=== PATIENT | male | born 1955 | race Hispanic/Latino ===

== ENCOUNTER → 2018-06-13 | Day surgery (SDC) | payer MEDICARE ==
[~2018-06-13] MED LIST: AMLODIPINE BESYL5 MG PO; AVODART0.5 MG PO; BACTRIM DS TAB1 EACH PO; FENTANYL CITRATE/PF 100MCG/2 ML INJ ONE; GLIMEPIRIDE2 MG PO; LIDOCAINE HCL 2% LOCAL INJ 5 ML SDV VIAL INJ ONE; LOSARTAN POTAS100 MG PO; LOTEMAX5 ML; LOVASTATIN40 MG PO; LYRICA25 MG PO; MIDAZOLAM HCL 2 MG/2 ML VIAL ONE; PAROXETINE HCL20 MG PO; PROPOFOL IV EMULSION 10 MG/ML 50 ML VIAL ONE; TACROLIMUS1 MG PO; VIT D3 PO
--- OUTSIDE RECORDS SUMMARY | 2018-06-13 07:30 | XMS REPORT | Clinical Summary ---
Author Author [facility] Address Unknown Phone Unavailable Care Team Providers Care Filter Tank Tender Helper Head Name Role Phone Gina Cota DO PCP Allergies No Known Allergies Medications End Date Status Medication Sig Dispensed Refills Start Date Active insulin lispro Inject under 0 protamin-lispro (HumaLOG the skin. 50-50) 100 unit/mL (50-50) suspension Active morPHINE (MS CONTIN) 30 Take 30 mg by 0 MG 12 hr tablet mouth 2 (two) times a day. Active pregabalin (LYRICA) 150 Take 150 mg 0 MG capsule by mouth 3 (three) times a day. Active LORAZepam (ATIVAN) 1 MG Take 1 mg by 0 tablet mouth 2 (two) times a day. Active cyclobenzaprine Take 10 mg by 0 (FLEXERIL) 10 mg tablet mouth 3 (three) times a day. Active bacitracin ophthalmic VIKTOR INTO LEFT 1 ointment EYE QHS UTD 7 Active BESIVANCE 0.6 % INT 1 GTT OS 6 drops,suspension Q 1 H QD AND 7 QPM Active LOTEMAX 0.5 % drops,gel INT 1 GTT IN 3 OS QID 7 Active gabapentin (NEURONTIN) Take by 0 300 mg capsule mouth. 5 Active glimepiride (AMARYL) 4 MG Take by 0 tablet mouth. 5 Active insulin NPH (HumuLIN-N) Inject 55 0 100 unit/mL injection units under 5 the skin every morning and 55 units every evening for diabetes Active lancets 28 gauge misc Use before 0 meals and at 4 bedtime Active metFORMIN (GLUCOPHAGE) Take by 0 500 mg tablet mouth. 5 Active insulin syringe-needle Inject under 0 U-100 (ULTRA COMFORT the skin. 5 INSULIN SYRINGE) 1/2 mL 30 gauge x 5/16 syringe Active blood-glucose meter Use to test 0 (PRECISION XTRA MONITOR) blood sugar. 8 misc This prescription is a verbal order by collaborative practice agreement at [facility] ([facility]). 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 complete remission 09/12/2007 Encounters Care Team Description Date Type Specialty Marlys Munguia MD 07/26/2017 Anesthesia Plastic Surgery Event Christopher Kearns MD PSEUDOPHAKIC PENETRATING KERATOPLASTY 07/26/2017 Surgery Plastic Surgery Christopher Kearns MD Descemetocele, left 07/26/2017 Hospital Plastic Surgery Encounter Suraj Alvarado MD 07/12/2017 Lab Lab Christopher Kearns MD 07/12/2017 Lab Lab after 06/12/2017 Immunizations Name Dates Previously Given Next Due INFLUENZA QUAD 06/11/2013 Pneumococcal 11/05/2016, 03/22/2011 Polysaccharide Family History Medical History Relation Name Comments No Known Problems Father Diabetes Mother Hyperlipidemia Mother Hypertension Mother Relation Name Status Comments Father Mother Social History Date Tobacco Use Types Packs/Day Years Used 07/04/1962 - 10/06/2002 Former Smoker Cigarettes 1 Smokeless Tobacco: Never Used Alcohol Use Drinks/Week oz/Week Comments No Sex Assigned at Date Recorded Not on file Industry Job Start Date Occupation Not on file Not on file Not on file Travel End Travel History Travel Start No recent travel history available. Last Filed Vital Signs Time Taken Vital Sign Reading 07/26/2017 3:08 PM CD [employer] Blood Pressure 132/75 07/26/2017 3:08 PM CD [employer] Pulse 69 07/26/2017 3:08 PM CD [employer]UFA[employer]ING SUPERVISOR Temperature 36.4 C (97.5 F) 07/26/2017 3:08 PM CD [employer]UFA[employer]URING SUPER[employer] Respiratory Rate 11 07/26/2017 3:08 PM CD [employer]UFACTURING SUPERVISOR Oxygen Saturation 95% - Inhaled Oxygen - Concentration - Weight - 07/26/2017 11:16 AM CD [employer]UFACTURING SUPERVISOR Height 172.7 cm (5' 8") - Body Mass Index - Plan of Treatment Health Maintenance Due Date Last Done Comments DIABETIC FOOT EXAM 1964 URINE MICROALBUMIN 1964 COLON CANCER SCREENING 2004 SHINGRIX VACCINE (1 of 2) 2004 ZOSTER VACCINE 2014 INFLUENZA VACCINE 02/01/2018 06/11/2013 DIABETIC RETINAL EYE EXAM 04/19/2018 04/19/2017 Implants Device Identifier Shelf Expiration Date Model / Serial / Lot Implanted Type Area Manufactur er 08/04/2017 PKP / W [id number] / Tissue Corneal - Sw [id number] Ophthalmic Left: Cornea [employer], 00 - [id number] Implants [employer] Implanted: Qty: 1 on 07/26/2017 by Christopher Braden MD [facility] Procedures Comments Procedure Name Priority Date/Time Associated Diagnosis SURGICAL PATHOLOGY Routine 07/26/2017 REQUEST 3:07 PM CD MANUFACTURING SUPERVISOR POC GLUCOSE Routine 07/26/2017 3:01 PM CD MANUFACTURING SUPERVISOR POC GLUCOSE Routine 07/26/2017 1:44 PM CD MANUFACTURING SUPERVISOR KERATOPLASTY, PENETRATING 07/26/2017 Descemetocele, left 1:35 PM CD MANUFACTURING SUPERVISOR Special Needs REQ 1330 START POC GLUCOSE Routine 07/26/2017 1:11 PM CD MANUFACTURING SUPERVISOR POC PANEL 4 Routine 07/26/2017 11:26 AM CD MANUFACTURING SUPERVISOR AFB STAIN Routine 07/12/2017 11:51 AM CD MANUFACTURING SUPERVISOR FUNGUS CULTURE Routine 07/12/2017 11:51 AM CD MANUFACTURING SUPERVISOR GRAM STAIN Routine 07/12/2017 11:51 AM CD MANUFACTURING SUPERVISOR FUNGUS SMEAR Routine 07/12/2017 11:51 AM CD MANUFACTURING SUPERVISOR EYE CULTURE, ANAEROBIC Routine 07/12/2017 11:51 AM CD MANUFACTURING SUPERVISOR EYE CULTURE Routine 07/12/2017 11:51 AM CD MANUFACTURING SUPERVISOR ACRIDINE ORANGE STAIN Routine 07/12/2017 11:51 AM CD MANUFACTURING SUPERVISOR after 06/12/2017 Results * Surgical pathology request (07/26/2017 3:07 PM CD MANUFACTURING SUPERVISOR) [facility] DEPARTMENT OF PATHOLOGY AND GENOMIC MEDICINE Surgical pathology report See link below for PDF Lab [facility] DEPARTMENT OF Report PATHOLOGY AND GENOMIC MEDICINE Result status This is Final Report to [facility] DEPARTMENT OF [id number] PATHOLOGY AND GENOMIC MEDICINE Performing Organization Address [facility] Phone Number [facility] [place] [address] PATHOLOGY AND GENOMIC MEDICINE * POC glucose (07/26/2017 3:01 PM CD MANUFACTURING SUPERVISOR) Only the most recent of 3 results within the time period is included. POC glucose 201 (H) 65 - 99 mg/dL [facility] DEPARTMENT OF Comment: PATHOLOGY AND [facility] Notified RN GENOMIC MEDICINE Meter ID: [id number] Bag Press Operator: LAITH HANNON Performing Organization Address [facility] Phone Number [facility] [place] [address] PATHOLOGY AND GENOMIC MEDICINE * POC panel 4 (07/26/2017 11:26 AM CD MANUFACTURING SUPERVISOR) POC sodium 125 (L)Comment: Testing 135 - 148 mEq/L [facility] DEPARTMENT OF performed on the ISTAVimty PATHOLOGY AND instrument by GEOVANY Sibley [id number] GENOMIC MEDICINE POC potassium 3.4 (L) 3.5 - 5.0 mEq/L [facility] DEPARTMENT OF PATHOLOGY AND GENOMIC MEDICINE POC hematocrit 28 (L) 41 - 51 % [facility] DEPARTMENT OF PATHOLOGY AND GENOMIC MEDICINE POC glucose 272 (H) 65 - 99 mg/dL [facility] DEPARTMENT OF PATHOLOGY AND GENOMIC MEDICINE Performing Organization Address [facility] Phone Number [facility] [place] [address] PATHOLOGY AND GENOMIC MEDICINE * Fungus smear (07/12/2017 11:51 AM CD MANUFACTURING SUPERVISOR) Fungus smear No fungi observed. [facility] DEPARTMENT OF Comment: PATHOLOGY AND Specimen Information GENOMIC MEDICINE Specimen Source: Cornea Specimen Site: Left Eye Specimen Cornea Performing Organization Address City/[facility] Phone Number [facility] [place] [address] PATHOLOGY AND GENOMIC MEDICINE * Eye culture, anaerobic (07/12/2017 11:51 AM CD MANUFACTURING SUPERVISOR) Eye culture isolate, Thioglycollate: [facility] DEPARTMENT OF anaerobic No anaerobes isolated after 7 PATHOLOGY AND days. GENOMIC MEDICINE Comment: Specimen Information Specimen Source: Cornea Specimen Site: Left Eye Specimen Cornea Performing Organization Address [facility] Phone Number [facility] DEPARTMENT OF [address] [place] [address] PATHOLOGY AND GENOMIC MEDICINE * Acridine orange stain (07/12/2017 11:51 AM CD MANUFACTURING SUPERVISOR) Acridine orange stain Rare WBC's [facility] DEPARTMENT OF No organisms seen PATHOLOGY AND Comment: GENOMIC MEDICINE Specimen Information Specimen Source: Cornea Specimen Site: Left Eye Specimen Cornea Performing Organization Address [facility] Phone Number [facility] DEPARTMENT OF [address] [place] [address] PATHOLOGY AND GENOMIC MEDICINE * Eye culture (07/12/2017 11:51 AM CD MANUFACTURING SUPERVISOR) Eye culture isolate Blood and Chocolate agars and [facility] DEPARTMENT OF Thioglycollate broth: PATHOLOGY AND Blood and Chocolate agar: [employer] MEDICINE Blood agar: No growth after 7 days. (A) Comment: Specimen Information Specimen Source: Cornea Specimen Site: Left Eye Eye culture isolate Staphylococcus, coagulase [facility] DEPARTMENT OF negative PATHOLOGY AND Recovered in Broth only: [employer] MEDICINE susceptibility to follow Interpretations of the AVELINA values are based on serum and urine levels.Interpret results accordingly. Interpretations of the AVELINA values are based on serum and urine levels.Interpret results accordingly. (A) Eye culture isolate Propionibacterium acnes [facility] DEPARTMENT OF 1+ PATHOLOGY AND Growth first detected on GENOMIC MEDICINE Chocolate agar on day 6. Interpretations of the AVELINA values are based on serum and urine levels.Interpret results accordingly. (A) Specimen Cornea Antibiotic Method Susceptibility Organism Ampicillin BP 0.25 mcg/mL Staphylococcus coagulase negative Azithromycin BP 1.5 mcg/mL: Susceptible Staphylococcus coagulase negative Ciprofloxacin BP 0.25 mcg/mL: Susceptible Staphylococcus coagulase negative Erythromycin BP 0.38 mcg/mL: Susceptible Staphylococcus coagulase negative Oxacillin BP 0.25 mcg/mL: Susceptible Staphylococcus coagulase negative Ofloxacin BP 0.75 mcg/mL: Susceptible Staphylococcus coagulase negative Penicillin G BP 0.50 mcg/mL: Resistant Staphylococcus coagulase negative Tobramycin BP 0.25 mcg/mL: Susceptible Staphylococcus coagulase negative Vancomycin BP 1.5 mcg/mL: Susceptible Staphylococcus coagulase negative Performing Organization Address [facility] Phone Number [facility] DEPARTMENT OF [address] [place] [phone] PATHOLOGY AND GENOMIC MEDICINE * Gram stain (07/12/2017 11:51 AM CD MANUFACTURING SUPERVISOR) Gram stain isolate Cancelled - Gram stain not [facility] DEPARTMENT OF performed since Acridine PATHOLOGY AND orange GENOMIC MEDICINE stain is negative. Comment: Specimen Information Specimen Source: Cornea Specimen Site: Left Eye Specimen Cornea Performing Organization Address [facility] Phone Number [facility] DEPARTMENT OF [address] [place] [address] PATHOLOGY AND GENOMIC MEDICINE * AFB stain (07/12/2017 11:51 AM CD MANUFACTURING SUPERVISOR) AFB stain No acid fast bacilli (AFB) [facility] DEPARTMENT OF seen. PATHOLOGY AND Comment: GENOMIC MEDICINE Specimen Information Specimen Source: Cornea Specimen Site: Left Eye Specimen Cornea Performing Organization Address [facility] Phone Number [facility] DEPARTMENT OF [address] [place] [address] PATHOLOGY AND GENOMIC MEDICINE * Fungus culture (07/12/2017 11:51 AM CD MANUFACTURING SUPERVISOR) Fungus culture isolate No growth after 4 weeks of [facility] DEPARTMENT OF incubation. PATHOLOGY AND Comment: GENOMIC MEDICINE Specimen Information Specimen Source: Cornea Specimen Site: Left Eye Specimen Cornea Performing Organization Address [facility] Phone Number [facility] DEPARTMENT OF [address] [place] [address] PATHOLOGY AND GENOMIC MEDICINE after 06/12/2017 Insurance Payer Benefit Subscriber ID Type Phone Address Plan / Group MEDICARE MEDICARE xxxxxxxxxx Medicare [place], [place] PART A AND B Advance Directives Patient has advance care planning documents on file. For more information, abbe walker contact: [facility] [address] [place] [id number]
[2018-06-13 12:45] VITALS: BP 141/82
== END | disposition home or self-care (01) ==
LOC: OR 07:27
PROVIDERS: ATTEND Internal Medicine Gastroenterology
DX: K29.50 Unspecified chronic gastritis without bleeding (principal); K44.9 Diaphragmatic hernia without obstruction or gangrene; I10 Essential (primary) hypertension; E11.9 Type 2 diabetes mellitus without complications; E55.9 Vitamin D deficiency, unspecified; E78.00 Pure hypercholesterolemia, unspecified; D64.9 Anemia, unspecified; D69.6 Thrombocytopenia, unspecified; Z79.84 Long term (current) use of oral hypoglycemic drugs; Z86.19 Personal history of other infectious and parasitic diseases
CPT/HCPCS: 36415; 43239; 45378; 82948; J2001; J2250